=== PATIENT | female | born 1970 | race Caucasian/White ===

== ENCOUNTER → 2024-11-09 16:55 | Outpatient (REF) | payer OTHER, SELFPAY | LOC: RAD 16:55 | PROVIDERS: ATTENDING PHYSICIAN Family Medicine | DX: M25.551 Pain in right hip (principal); M25.561 Pain in right knee | CPT/HCPCS: 73502; 73564 ==

== ENCOUNTER → 2024-12-19 19:06 | Outpatient (REF) | payer OTHER, SELFPAY | LOC: WDC 19:06 | PROVIDERS: ATTENDING PHYSICIAN Physician Assistant | DX: Z12.31 Encounter for screening mammogram for malignant neoplasm of breast (principal) | CPT/HCPCS: 77063; 77067 ==

== ENCOUNTER 2025-01-16 22:05 | Emergency (ER) | payer OTHER, SELFPAY ==
[2025-01-16 22:07] VITALS: BP 111/83
--- NOTE | 2025-01-17 02:08 | ED.GENMED ---
History of Present Illness
General
Chief Complaint: Dental Problem
Source: patient
Exam Limitations: none
Time Seen by Provider: 01/17/25 01:51
Nursing documentation reviewed up to this point in time: agreed with
History of Present Illness
History of Present Illness:
Patient status post wisdom tooth extraction 1 month ago, presents to ED secondary to worsening right jaw pain after completing course of antibiotics, along with headache. Denies fever or chills. Denies nausea or vomiting. Denies throat swelling
sensation. Denies new trauma. Denies difficulty with swallowing.
Past History
Past History
ED Past Medical History: None
ED Past Surgical History: None
Review of Systems
Review of Systems
Allergies reviewed?: Yes
All Other Systems: ROS reviewed and negative except as documented in HPI and ROS
Constitutional: Reports no symptoms
EENT: Reports other (tooth/facial/jaw pain)
Respiratory: Denies trouble breathing
ABD/GI: Reports no symptoms; Denies vomiting
Musculoskeletal: Reports no symptoms
Skin: Reports no symptoms
Neurological: Reports headache
Phy Exam
Physical Exam
Physical Exam:
Physical Exam
General: mild distress, not acutely ill. afebrile
Head: nc/at. eomi
Neck: supple. no meningeal signs.
Throat: normal pharynx. normal dentition without gingival swelling. no cervical lymphadenopathy.
Abdomen: normal bowel sounds. not tender.
Neuro: alert and oriented x 3. no focal neurological deficits
Skin: no rash
Psychiatric: well kept. interactive and cooperative
Extremities: no edema. no calf tenderness.
Course
Orders/Labs/Results
Orders:
Orders
01/17/25 02:08
Clindamycin HCl [Cleocin] 300 mg PO NOW STA
Vital Signs
Initial and Last Documented VS:
Initial Vital Signs
Temp Pulse Resp BP Pulse Ox
98.5 F 73 18 111/83 98
01/16/25 22:07 01/16/25 22:07 01/16/25 22:07 01/16/25 22:07 01/16/25 22:07
Last Documented Vital Signs
Temp Pulse Resp BP Pulse Ox
98.5 F 64 16 118/69 99
01/16/25 22:07 01/17/25 02:20 01/17/25 02:20 01/17/25 02:20 01/17/25 02:20
MDM/Problems Addressed
MDM/Problems Addressed:
History and exam concerning for potential incompletely treated wisdom tooth infection versus residual postoperative pain versus nerve pain secondary to recent procedure as well as infection. Fortunately, patient is afebrile, hemodynamically stable,
and nontoxic-appearing. No concern for extension of infection, as there is no throat swelling or difficulty swallowing. As patient already has an MRI scheduled later this week, I believe it is reasonable to withhold any further imaging studies at
this time, but start patient on empiric antibiotics along with pain control. Advised potential return to ED with significant worsening symptoms.
*Critical Care Note
Total Time (30-74mins, 75-104mins- exclusive of procedures): Not Applicable
ED Attending Note
-
Portions of this chart may have been created with voice recognition software.� Occasional wrong word or��sound alike� substitutions may have occurred due to the inherent limitations of voice recognition software.
Discharge Plan
Departure
Patient Disposition: Home (Routine Discharge)
Date of Disposition: 01/17/25
Time of Disposition: 02:08
Patient with high blood pressure during this ER visit?: No
Condition: Good
Discharge Problem:
Jaw pain
Instructions: Dental pain - ED discharge instructions
Prescriptions:
New
clindamycin HCl [Cleocin HCl] 300 mg capsule
300 mg PO TID Qty: 20 0RF
oxycodone-acetaminophen [Percocet] 5-325 mg Tablet
1 tab PO Q6HPRN PRN (Reason: pain) Qty: 12 0RF
No Action
calcium phosphate-vitamin D3 1 EACH tablet,chewable
1 ea PO DAILY
Magnesium
1 dose PO DAILY
Sumatriptan
1 dose PO PRN PRN (Reason: migraine)
ibuprofen [Advil] 200 mg Tablet
400 mg PO Q6H PRN (Reason: pain)
Referrals:
Keyla Castillo PA [Family Provider, Family Practice]
Activity Restrictions/Additional Instructions:
As discussed, please follow-up with your primary care physician and/or oral surgeon for further evaluation and treatment. Please obtain already scheduled MRI later this week. Please consider returning to ED with worsening symptoms. Your
prescriptions have been sent electronically to [facility] pharmacy in [place]
Interventions
Interventions:
*Risk Screen - Suicide Last Done: 01/16/25 22:07
*General Assessment Last Done: 01/16/25 22:07
*Neglect/Abuse Screening Last Done: 01/16/25 22:07
*ED- Fall Risk Assessment Last Done: 01/16/25 22:07
*ED COVID-19 Vaccine History Last Done: 01/16/25 22:07
*Nursing Disposition Last Done: 01/17/25 02:21
Discharge Date and Time
Discharge Date/Time: 01/17/25 02:21
Print Language: MACEDONIAN
[2025-01-17] MEDS: CLEOCIN 300 MG PO (02:17)
[2025-01-17 02:20] VITALS: BP 118/69
== END 2025-01-17 02:21 | disposition home or self-care (01) ==
LOC: EMR 22:05
PROVIDERS: EMERGENCY PHYSICIAN Emergency Medicine; FAMILY PHYSICIAN Physician Assistant
DX: R68.84 Jaw pain (principal); Z98.818 Other dental procedure status
CPT/HCPCS: 99283

== ENCOUNTER → 2025-06-02 07:55 | Outpatient (REF) | payer OTHER, SELFPAY | LOC: EMG 07:55 | PROVIDERS: ATTENDING PHYSICIAN Family Medicine | DX: M79.641 Pain in right hand (principal); M79.642 Pain in left hand; M79.671 Pain in right foot; M79.672 Pain in left foot; R20.0 Anesthesia of skin | CPT/HCPCS: 95886; 95913 ==